=== PATIENT | male | born 1955 | race Caucasian/White ===

== ENCOUNTER 2017-02-20 08:16 | Day surgery (SDC) | payer MEDICARE ==
[2017-02-19 16:12] VITALS: BMI 35.0
[2017-02-20] MEDS ORDERED: Clindamycin/D5W 900 mg/50 ml Premix Bag ONE (09:45)
[2017-02-20] MEDS ORDERED: Fentanyl 100 MCG/2 ML VIAL ONE ×3 (10:25→12:54)
[2017-02-20] MEDS ORDERED: HYDROmorphone 0.5 MG/0.5 ML SYRINGE ONE ×3 (10:25→13:28)
[2017-02-20] MEDS ORDERED: Lidocaine 1% w/Epinephrine 1:200K 30 ML VIAL ONE (10:39)
[2017-02-20] MEDS ORDERED: Ondansetron HCl/PF 4 MG/2 ML Vial ONE ×3 (11:00→16:17)
[2017-02-20] MEDS ORDERED: hydrALAZINE 20 MG/ML VIAL ONE (12:28)
[2017-02-20] MEDS ORDERED: Hydrocodone-Acetamin 15 ML UDCUP ONE (14:26)
[2017-02-20] MEDS ORDERED: Propofol 200 MG/20 ML VIAL ONE (16:17)
[2017-02-20] MEDS ORDERED: Dexamethasone 20 MG/5 ML VIAL ONE (16:17)
[2017-02-20] MEDS ORDERED: PHENYLEPHRINE-NS 100 MCG/ML 10 ML SYRINGE ONE (16:17)
[2017-02-20] MEDS ORDERED: Succinylcholine Chloride 20 MG/ML 10 ml SYRINGE FS ONE (16:17)
[2017-02-20] MEDS ORDERED: Lidocaine 1% PF 5 ML VIAL ONE (16:17)
--- NOTE | 2017-02-22 06:25 | OP ---
DATE OF PROCEDURE: 02/20/2017 PREOPERATIVE DIAGNOSES: 1. Left thyroid nodule. 2. Hyperthyroidism. POSTOPERATIVE DIAGNOSES: 1. Left thyroid nodule. 2. Hyperthyroidism. PROCEDURE PERFORMED: Left hemithyroidectomy. SURGEON: Dr. Mikhail Boyce. ESTIMATED BLOOD LOSS: 10 mL. COMPLICATIONS: None. ANESTHESIA: GETA with laryngeal nerve monitor. PROCEDURE IN DETAIL: The patient was taken to the operating room and placed supine on the table. Ge neral endotracheal anesthesia was obtained by the Anesthesia staff. Tube was secured in the midline of the upper lip. performed to confirm the placement of the tube between the vocal cords. Fol lowing this, the patient was prepped and draped in standard surgical fashion. Following this, an inc ision was made across the midline extending on the lower side of the neck overlying the thyroid gland . This incision was carried through the skin, subcutaneous tissue and the platysmal layer. Followin g this, subplatysmal flaps were elevated superiorly and inferiorly. Following this, the strap muscle s were identified and were in the midline. The left thyroid gland was identified and was g ently retracted medially with Allis clamp as dissection was carried immediately adjacent to the thyro id capsule. The superior thyroid vascular pedicle was ligated immediately adjacent to the thyroid gl and. Following this, the gland was mobilized more medially and the recurrent laryngeal nerve was kerline ntified. Protecting this nerve as a course in the tracheoesophageal groove, the inferior thyroid art mily was suture ligated and the gland was released from its attachment to the trachea inferiorly. The gland was freed from its venous attachment and attachment to the trachea. Following this, the isthm us was in the midline with the Bovie electrocautery and was suture ligated. This left larg e thyroid lobe was then sent for frozen analysis, which deferred for permanent analysis. Following t his, the wound was irrigated, a drain was placed, the strap muscles and subplatysmal and subcuticular layers were closed with Monocryl stitches. The skin was closed using odessa. The patient tolerate d the procedure well.
== END 2017-02-20 15:45 | disposition home or self-care (01) ==
LOC: SDC 08:16
PROVIDERS: ATTEND Otolaryngology Plastic Surgery within the Head & Neck
PROC: 0GBG0ZZ Excision of Left Thyroid Gland Lobe, Open Approach (ICD-10-PCS; principal; 2017-02-20)
DX: E05.20 Thyrotoxicosis with toxic multinodular goiter without thyrotoxic crisis or storm (principal); I10 Essential (primary) hypertension; E78.5 Hyperlipidemia, unspecified; G47.30 Sleep apnea, unspecified; M10.9 Gout, unspecified; F17.210 Nicotine dependence, cigarettes, uncomplicated; M19.90 Unspecified osteoarthritis, unspecified site; E66.9 Obesity, unspecified; Z68.35 Body mass index [BMI] 35.0-35.9, adult; Z79.899 Other long term (current) drug therapy; Z88.0 Allergy status to penicillin; Z98.1 Arthrodesis status; Z96.653 Presence of artificial knee joint, bilateral; Z98.890 Other specified postprocedural states; Z99.89 Dependence on other enabling machines and devices
CPT/HCPCS: 88307; 93005; 93010; 96374; J0360; J1100; J1170; J2001; J2405; J2704; J3010; J3490

== ENCOUNTER 2017-06-19 08:42 | Inpatient (IN) | payer MEDICARE ==
[2017-06-18 11:46] VITALS: BMI 34.4
[2017-06-19] MEDS ORDERED: Midazolam HCl 2 mg/2 ml Vial ONE (11:01)
[2017-06-19] MEDS ORDERED: Fentanyl 100 MCG/2 ML VIAL ONE ×2 (11:01→20:43)
[2017-06-19] MEDS ORDERED: Lidocaine 1% w/Epinephrine 1:200K 30 ML VIAL ONE ×2 (11:07→20:29)
[2017-06-19] MEDS ORDERED: Clindamycin/D5W 900 mg/50 ml Premix Bag ONE ×2 (11:44→21:06)
[2017-06-19] MEDS ORDERED: Ondansetron HCl/PF 4 MG/2 ML Vial IVP PRN ×2 (13:06→21:46)
[2017-06-19] MEDS ORDERED: Promethazine HCl 25 MG/ML VIAL SLOW IVP PRN ×2 (13:06→21:46)
[2017-06-19] MEDS ORDERED: Promethazine HCl 25 MG/ML VIAL IM PRN ×2 (13:06→21:46)
[2017-06-19] MEDS ORDERED: Morphine Sulfate 2 MG/ML SYRINGE SLOW IVP PRN (13:06)
[2017-06-19] MEDS ORDERED: Morphine 4 MG/ML VIAL ONE ×2 (13:20→13:41)
[2017-06-19] MEDS ORDERED: Dexamethasone 20 MG/5 ML VIAL ONE ×2 (13:35→13:37)
[2017-06-19] MEDS ORDERED: Lidocaine 1% PF 5 ML VIAL ONE ×2 (13:35→13:37)
[2017-06-19] MEDS ORDERED: PROPOFOL 200 MG/20 ML VIAL ONE ×2 (13:35→13:37)
[2017-06-19] MEDS ORDERED: Succinylcholine Chloride 20 MG/ML 10 ml SYRINGE FS ONE ×2 (13:35→13:37)
[2017-06-19] MEDS ORDERED: Ondansetron HCl/PF 4 MG/2 ML Vial ONE (13:35)
[2017-06-19] MEDS ORDERED: ePHEDrine/0.9% NaCl/PF SYRINGE 50 mg/10 ml ONE ×2 (13:35→13:37)
[2017-06-19] MEDS ORDERED: PHENYLEPHRINE-NS 100 MCG/ML 10 ML SYRINGE ONE (13:37)
[2017-06-19] MEDS ORDERED: hydrALAZINE 20 MG/ML VIAL ONE (13:41)
[2017-06-19] MEDS ORDERED: HYDROcodone/Acetaminophen 7.5/325 mg Tablet PO PRN (14:52)
[2017-06-19] MEDS ORDERED: Ondansetron HCl/PF 4 MG/2 ML Vial SLOW IVP PRN (14:56)
[2017-06-19] MEDS ORDERED: Ibuprofen 800 MG TAB PO PRN (15:03)
[2017-06-19] MEDS ORDERED: traZODone HCl 50 MG TAB PO PRN (15:06)
[2017-06-19] MEDS ORDERED: Colchicine 0.6 MG TAB PO PRN (15:29)
[2017-06-19] MEDS ORDERED: cloNIDine 0.1 MG TAB PO PRN (15:29)
[2017-06-19] MEDS ORDERED: Furosemide 20 MG TAB PO PRN (15:30)
[2017-06-19] MEDS: Calcium Carbonate 500 MG TAB PO SCH (16:06)
[2017-06-19] MEDS: HYDROcodone/Acetaminophen 7.5/325 mg Tablet PO PRN ×2 (16:06→22:22)
[2017-06-19] MEDS ORDERED: Lisinopril 20 MG TAB PO SCH (16:15)
[2017-06-19] MEDS: Morphine 4 MG/ML VIAL SLOW IVP PRN (17:55)
[2017-06-19] MEDS: PROVENTIL INHALER 6.7 G (200 INHALATIONS) INH SCH (19:17)
[2017-06-19] MEDS: tiZANidine HCl 4 MG TAB PO PRN (19:56)
[2017-06-19] MEDS: Simvastatin 5 MG TAB PO SCH ×2 (20:54→22:22)
[2017-06-19] MEDS: Sodium Chloride 0.45% 1,000 ML IV SCH ×2 (21:10→22:25)
[2017-06-19] MEDS ORDERED: Bacitracin Zinc Ointment 30 gm TUBE ONE (21:26)
[2017-06-19] MEDS ORDERED: Meperidine HCl/PF 25 MG/ML VIAL SLOW IVP PRN (21:46)
[2017-06-20] MEDS: Morphine 4 MG/ML VIAL SLOW IVP PRN (01:01)
[2017-06-20] MEDS: HYDROcodone/Acetaminophen 7.5/325 mg Tablet PO PRN ×3 (02:20→12:25)
[2017-06-20] MEDS: Calcium Carbonate 500 MG TAB PO SCH ×3 (08:23→16:26)
[2017-06-20] MEDS ORDERED: Escitalopram Oxalate 20 mg Tablet PO SCH (09:00)
[2017-06-20] MEDS ORDERED: Calcitriol 0.25 MCG CAP PO SCH (09:00)
[2017-06-20] MEDS ORDERED: Propranolol HCl LA 60 MG CAP PO SCH (09:00)
[2017-06-20] MEDS ORDERED: Lisinopril 20 MG TAB PO SCH (09:00)
[2017-06-20] MEDS ORDERED: Azithromycin 250 MG TAB PO SCH (09:00)
[2017-06-20] MEDS ORDERED: Bupropion 150 MG XL TAB PO SCH (09:00)
[2017-06-20] MEDS ORDERED: Amlodipine 10 MG TAB PO SCH (09:00)
[2017-06-20] MEDS: PROVENTIL INHALER 6.7 G (200 INHALATIONS) INH SCH (10:45)
[2017-06-20] MEDS: tiZANidine HCl 4 MG TAB PO PRN (12:28)
[2017-06-20] MEDS: Sodium Chloride 0.45% 1,000 ML IV SCH (13:44)
[2017-06-20 16:43] VITALS: BP 166/73; TEMP 98.1
--- NOTE | 2017-06-25 12:46 | OP ---
PREOPERATIVE DIAGNOSIS: Right thyroid mass. POSTOPERATIVE DIAGNOSIS: Right thyroid mass. PROCEDURE: Completion thyroidectomy or right hemithyroidectomy. SURGEON: Mikhail Boyce M.D. PERSONAL INJURY PARALEGAL: . ESTIMATED BLOOD LOSS: 50 mL. COMPLICATIONS: None. ANESTHESIA: GETA with laryngeal nerve monitor. DESCRIPTION OF PROCEDURE: The patient taken to the operating room and placed on the table. General endotracheal anesthesia was obtained by the Anesthesia staff. Tube was secured . The patient w as prepped and draped for standard surgical procedures. Following this, an incision was made through the previous lower neck incision and extended on the right side of the neck approximately 2 cm furth er. The skin and subcutaneous tissue was incised with a 15 blade. The platysma layer was then trans ected and subplatysmal flaps were elevated superiorly to the level of the thyroid notch and inferiorl y to the clavicles. Strap muscles were identified and were in the midline. The muscles we re then retracted laterally as the thyroid gland was identified, staying immediately adjacent to the capsule, but no thyroid vein was suture ligated as well as the superior laryngeal vessels, which were suture ligated immediately adjacent to the thyroid gland. The superior parathyroid and inferior par athyroids were identified as the gland was gently retracted medially. The inferior thyroid artery wa s identified and was suture ligated. Just posterior to this, the recurrent laryngeal nerve was ident ified running approximately 15 degrees from the tracheoesophageal groove angle. As the nerve was kerline ntified and was protected, the gland was freed from its attachments in this area. Following this, Be rry's ligaments were then transected and the gland was removed from the body. The wound was irrigate d. Hemostasis was controlled using small surgical clips, bipolar, and small silk ties. Drain was pl aced into the surgical bed and then the Monocryl stitches were used to reapproximate the strap muscle s, platysmal layer subcuticular stitches. Dermabond was placed for the skin. The patient tolerated the procedure well. The drain was noted to be working prior to the case ending.
== END 2017-06-20 16:45 | disposition home or self-care (01) | DRG 626 ==
LOC: SDC 08:42 → SURG A 13:46
PROVIDERS: ADMIT Otolaryngology Plastic Surgery within the Head & Neck; ATTEND Otolaryngology Plastic Surgery within the Head & Neck
PROC: 0GTH0ZZ Resection of Right Thyroid Gland Lobe, Open Approach (ICD-10-PCS; principal; 2017-06-19)
PROC: 0W960ZZ Drainage of Neck, Open Approach (ICD-10-PCS; 2017-06-19)
DX: E07.9 Disorder of thyroid, unspecified (principal); L76.32 Postprocedural hematoma of skin and subcutaneous tissue following other procedure
CPT/HCPCS: 36415; 82310; 88307; 88311; J0360; J1100; J2001; J2250; J2270; J2405; J2704; J3010; J3490